=== PATIENT | female | born 1985 ===

== ENCOUNTER 2018-12-22 11:52 | Inpatient (IN) | payer OTHER ==
[2018-12-22] MEDS ORDERED: Lactated Ringers 1000 ML Bag* 1,000 ML IV ONE (14:42)
--- NOTE | 2018-12-22 14:52 | HP ---
General Information - Reason for Visit IUP at 38-6 with pre-labor rupture of membranes, GBS + - General Information Maternal Age: 33 Grav: 1 Para: 0 SAB: 0 IEA: 0 Estimated Due Date: 12/30/18 Determined By: LMP Gestational Age in Weeks/Days: 38-6/7 Maternal Blood Type and Rh: A Positive - Results this Serology/RPR Result: Non-Reactive Rubella Result: Non-Immune HBsAg Result: Negative HIV Result: Negative GBS Culture Result: Positive Past Medical History Delivery History: See Records Delivery History Comment: Primip Pertinent Past Medical History: Non-Contributory Pertinent Past Surgical History: None Pertinent Family History: See Records Family History Comment: PGM: , congestive heart failure PGF: , lung cancer MGM: , pneumonia MGF: , lung cancer - Antepartal Records Antepartal Records: Reviewed, Complicated by: - Mother is a CF carrier , FOB is not. 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 Rubella equivocal x 2, plan PP MMR. GBS + Review of Systems Constitutional: Comfortable CV Complaint: No Respiratory: Shortness of Breath: No Gastrointestinal: No Nausea/Vomiting, Normal Bowel Movement Genitourinary: Leaking Fluid, No Dysuria, No Bleeding Musculoskeletal: No Complaint, No Epigastric Pain Neurological: No Headache, No Visual Changes Movement: Normal Exam Allergies/Adverse Reactions: Allergies No Known Allergies Allergy (Verified 12/22/18 13:53) BP 130/77 HR 90 RR 18 T 98.9 SpO2 100% on RA Lab Values - Entire Visit: Laboratory Tests 12/22/18 12:40 Vag Amniotic Fld Detect Positive - Measurements Height: 5 ft 10 in Weight: 210 lb Weight in lbs: 210.091489 Body Mass Index (BMI): 30.1 Pre- Weight: 170 lb Weight Gained This : 40 lbs and 0 ozs - Exam Breast: Breast Exam Deferred CVA: No CVA Tenderness Extremities: No Edema Heart: Normal Rhythm/Heart Sounds HEENT: No Significant Findings Lungs: Clear Bilaterally Rectal: Rectal Exam Deferred Reflexes: DTR 2+ Thyroid: No Thyromegaly - Abdominal Exam Abdomen Exam: Non-Tender, Fundal Height Consistent with Dates - Ultrasound/Biophysical Profile Ultrasound Status: Not Done Targeted Exam Findings See L&D Outpatient Visit Provider Note for Findings: N/A Estimated Weight: EFW 7.5lbs Amniotic Fluid Evaluation: Positive ROM Plus, Clear - In presence of rupture cervical exam deferred pending GBS prophylaxis Sterile Speculum Exam: Not done Bleeding/Discharge: Bloody Show EFM Findings - External Monitor Findings Baseline Heart Rate: 135 External Monitor Findings: Accelerations Present, No Pattern of Variable or Late Decelerations, Variability Moderate, Baseline Stable External Monitor Findings Comment: No evidence of metabolic acidemia Contractions: None - describes some cramping but no UCs Assessment/Plan - Assessment IUP at 38-6/7 with pre-labor rupture of membranes No evidence of metabolic acidemia GBS positive - Obstetrical Risk Factors Obstetrical Risk Factors: GBS Positive - Plan Plan: Antibiotic Prophylaxis, Admit - Anticipate Vaginal Delivery Plan Comment: Admit in labor. Counseled for IV, labs: CBC, T&S and GBS prophylaxis with penicillin. Discussed timing of vaginal exam/evaluation after abx prophylaxis and recommendation to augment labor in presence of pre-labor rupture of membranes and GBS+. Pt and FOB both verbalize some concern about abrupt induction. Reassured and discussed importance of SVE, Ramirez's Score calculation and successful augmentation taking into account where pt's body is at/what her cervix is ready for. All ?s answered. Pt and FOB agree with plan. - Date/Time of Admission Date of Admission: 12/22/18 Time of Admission: 14:14
[2018-12-22 14:59] LABS: ABS Lymphocytes 1.3 10^3/ul (1.0-4.8); ABS Monocytes 0.6 10^3/ul (0-0.8); ABS Neutrophils 11.6 10^3/ul (1.5-7.7); Eosinophil % 0.2 %; Hematocrit 33 % (35-47); Hemoglobin 10.9 g/dL (12.0-16.0); Lymphocyte % 9.9 %; Mean Corpuscular HGB Conc 33 g/dL (31-36); Mean Corpuscular Hemoglobin 28 pg (27-31); Mean Corpuscular Volume 87 fL (80-97); Platelet Count 315 10^3/uL (150-450); Red Blood Count 3.83 10^6 /uL (3.70-4.87); Red Cell Distribution Width 15 % (10-15); White Blood Count 13.5 10^3/uL (3.5-10.8)
[2018-12-22] MEDS ORDERED: Penicillin G Potassium IV* 5,000,000 UNITS in NS 0.9% 100 ML* 100 ML IVPB ONE (15:00)
[2018-12-22 15:22] LABS: Urine Benzodiazepine Screen None Detected (None Detect); Urine Opiates Screen None Detected (None Detect)
--- NOTE | 2018-12-22 16:43 | PN ---
Progress Note - Progress Note Date of Service: 12/22/18 Note: S: After walking pt reports starting to feel some UCs, breathing through them. FOB at bedside, supportive O: BP 124/81 HR 75 RR 18 FHT 135bpm. Moderate variability. +Accels. No decels UCs q 6-8 min VE posterior 4cm/80%/vtx -1, clear fluid +bloody show A: IUP at 38-6/7 in latent labor No evidence of metabolic acidemia GBS + P: Pt received first dose of abx. Given that she's starting to feel UCs would like to continue expectant management for now. Aware of recommendation to augment labor in presence of GBS but strong preference to minimize intervention at this time. Will continue to monitor
[2018-12-22] MEDS ORDERED: Penicillin G Potassium IV* 2,500,000 UNITS in NS 0.9% 100 ML* 100 ML IVPB SCH (19:30)
--- NOTE | 2018-12-22 20:40 | PN ---
Progress Note - Progress Note Date of Service: 12/22/18 Note: S: Pt breathing through UCs. Reports that they are much stronger and more frequent. FOB at bedside providing support. O: BP 119/67 HR 73 T 98.7 FHT 135bpm. Moderate variability. +Accels. No decels UCs q 2-3 palpate moderate-firm VE deferred A: IUP at 38-6/7 weeks in labor No evidence of metabolic acidemia GBS + P: Bedside support given. ?s answered re: when to have another VE, how to know things are changing. Reassurance given. Will continue to monitor
--- NOTE | 2018-12-22 21:02 | PN ---
Progress Note - Progress Note Date of Service: 12/22/18 Note: Quick Note Pt reports increased pressure with the last few contractions. Also feeling shivery and shaky and "kind of out of it". Most comfortable in bed. FOB continues to be attentive. VE: 6-7cm/90%/vtx -1. Reassurance given. Bedside support. Will continue to monitor
[2018-12-22] MEDS ORDERED: Oxytocin in LR* 20 UNITS/1,000 ML BAG IVPB ONE (22:30)
[2018-12-22] MEDS ORDERED: Acetaminophen TAB* 325 MG PO PRN (23:03)
[2018-12-22] MEDS ORDERED: Glycerin ADULT SUPP PR PRN (23:03)
[2018-12-22] MEDS ORDERED: Measles, Mumps,Rubella VACC* 0.5 ML/VIAL SUBCUT ONE (23:03)
--- NOTE | 2018-12-22 23:11 | PROCNOTE ---
[facility] OB: Delivery Note - Delivery A Date of : 12/22/18 Time of : 22:33 [place] Sex: Female - "Saundra" Score 1 Minute: 9 Score 5 Minutes: 9 Gestational Age in Weeks and Days at Delivery: 38 Weeks and 6 Days Delivery Method: Spontaneous Vaginal Labor: Spontaneous Did Patient attempt ?: N/A, No Previous Amniotic Fluid: Clear Estimated Blood Loss: 250 Anesthesia/Analgesia: None Delivered By: Valetnina Alexander - Nursery Level of Nursery: Regular/Bedside - Perineum Perineal Injury: Vaginal Laceration - 3cm. Repaired with 3-0 Rapide under local infiltration 1% lidocaine. Pt tolerated well Perineal Repair: By Delivering Practioner - Events Delivery Events of Note: Pitocin Only After Delivery, Full Course of Antibiotics - Additional Delivery Notes Additional Delivery Notes: Pt admitted with spontaneous rupture of membranes to clear fluid. Progressed to active labor without intervention. Received full course of GBS prophylaxis per protocol. Length of active phase 2 hours, 10 min. Pushed x 47 minutes. liveborn female. Slow, controlled delivery of head. OA to JOAN. Shoulders followed easily. vigorous with spontaneous cry. HR>110bpm. Delivered to maternal abdomen. Cord clamped x 2 and cut by FOB when pulsations ceased. Spontaneous delivery intact placenta. Membranes complete. Fundus firm to massage with minimal bleeding noted. Repair as above. EBL 250mL. At time of note mother and infant in stable condition. Planning to breast feed.
[2018-12-22] MEDS ORDERED: Lactated Ringers 1000 ML Bag* 1,000 ML IV SCH (23:45)
[2018-12-22] MEDS ORDERED: Oxytocin in LR* 20 UNITS/1,000 ML BAG IVPB SCH (23:45)
[2018-12-23] MEDS: Ibuprofen TAB* 600 MG PO PRN ×3 (00:12→20:05)
[2018-12-23] MEDS ORDERED: Lidocaine 1% INJ* 10 MG/ML 30 ML SDV ONE (01:34)
[2018-12-23] MEDS: Witch Hazel PAD* JAR TOPICAL PRN (08:21)
[2018-12-23] MEDS: Docusate CAP* 100 MG PO SCH ×2 (08:21→20:05)
[2018-12-23] MEDS: Dibucaine 1% 28.35 GM TUBE PR PRN (08:21)
[2018-12-23] MEDS ORDERED: Simethicone TAB* 80 MG TAB.CHEW PO SCH (08:30)
[2018-12-23] MEDS ORDERED: Ferrous Gluconate TAB* 324 MG TAB PO SCH (09:00)
[2018-12-23 09:27] LABS: ABS Lymphocytes 1.5 10^3/ul (1.0-4.8); ABS Monocytes 0.7 10^3/ul (0-0.8); ABS Neutrophils 13.5 10^3/ul (1.5-7.7); Eosinophil % 0.1 %; Hematocrit 31 % (35-47); Hemoglobin 10.3 g/dL (12.0-16.0); Lymphocyte % 9.3 %; Mean Corpuscular HGB Conc 33 g/dL (31-36); Mean Corpuscular Hemoglobin 28 pg (27-31); Mean Corpuscular Volume 86 fL (80-97); Nucleated Red Blood Cells % 0.1; Platelet Count 288 10^3/uL (150-450); Red Blood Count 3.64 10^6 /uL (3.70-4.87); Red Cell Distribution Width 15 % (10-15); White Blood Count 15.8 10^3/uL (3.5-10.8)
--- NOTE | 2018-12-23 12:27 | PTEDU ---
Patient Name: NILO EDGE NILO EDGE selected video: BBOB: Nurturing Your Gorgeous &Growing Baby by to view on 12/23/2018 at 12:26:[address] [id number]
[2018-12-24] MEDS: Ibuprofen TAB* 600 MG PO PRN ×3 (09:29→22:15)
[2018-12-24] MEDS: Docusate CAP* 100 MG PO SCH ×3 (09:30→20:58)
[2018-12-25] MEDS: Ibuprofen TAB* 600 MG PO PRN ×2 (05:05→11:54)
[2018-12-25 07:46] VITALS: BP 111/64
[2018-12-25] MEDS: Witch Hazel PAD* JAR TOPICAL PRN (11:53)
[2018-12-25] MEDS: Dibucaine 1% 28.35 GM TUBE PR PRN (11:53)
[2018-12-25] MEDS: Docusate CAP* 100 MG PO SCH (12:09)
== END 2018-12-25 12:50 | disposition home or self-care (01) | DRG 806 ==
LOC: MCHOBOUT 11:52 → MCHOB 14:14
PROVIDERS: ADMIT Midwife; ATTEND Midwife
PROC: 10E0XZZ Delivery of Products of Conception, External Approach (ICD-10-PCS; principal; 2018-12-22)
PROC: 0KQM0ZZ Repair Perineum Muscle, Open Approach (ICD-10-PCS; 2018-12-22)
DX: O42.02 Full-term premature rupture of membranes, onset of labor within 24 hours of rupture (principal); O71.4 Obstetric high vaginal laceration alone; Z37.0 Single live birth; O99.824 Streptococcus B carrier state complicating childbirth; Z3A.38 38 weeks gestation of pregnancy
CPT/HCPCS: 36415; 80307; 84112; 85025; 86850; 86900; 86901; 90707; A9270-GY; J2540